=== PATIENT | male | born 1995 | race African-American/Black ===

== ENCOUNTER 2016-08-03 01:20 | Emergency (ER) | payer BC ==
[2016-08-03 01:08] LABS: INFLUENZA A NEG (NEG); INFLUENZA B POS (NEG)
[~2016-08-03 01:20] MED LIST: ADVIL200 M1 PO; ASPIRIN81 M2 PO; NO MEDICATIONS; NYQUIL D COLD295 ML; PREVACID SOLUTA30 M1 PO; ST. JOSEPH ASP325 MG PO; VOLTAREN75 MG PO
[2016-08-03] MEDS ORDERED: TAMIFLU75 M1 PO (01:30)
[2016-08-03] MEDS ORDERED: PROMETHAZI6.25 MG/5 PO (01:30)
[2016-09-01] MEDS ORDERED: NO MEDICATIONS (23:12)
== END 2016-08-03 01:30 | disposition home or self-care (01) ==
LOC: SED 01:20
PROVIDERS: Emergency Medicine
DX: J10.1 Influenza due to other identified influenza virus with other respiratory manifestations (principal); F17.200 Nicotine dependence, unspecified, uncomplicated
CPT/HCPCS: 87651; 87804; 99283

== ENCOUNTER 2016-09-01 23:47 | Emergency (ER) | payer BC ==
[~2016-09-01 23:47] MED LIST changes: +PROMETHAZI6.25 MG/5 PO; +TAMIFLU75 M1 PO
== END 2016-09-02 00:11 | disposition home or self-care (01) ==
LOC: SED 23:47
DX: K08.89 Other specified disorders of teeth and supporting structures (principal); K05.10 Chronic gingivitis, plaque induced; F17.200 Nicotine dependence, unspecified, uncomplicated
CPT/HCPCS: 99283

== ENCOUNTER 2016-09-21 06:44 | Emergency (ER) | payer BC ==
--- NOTE | ~2016-09-21 | CR63 ---
[facility]. [facility] A Service of [facility] & [facility] RADIOLOGY TEXT RESULTS PATIENT: JAMAL CABRERA LOCATION: SED : [birth year] UNIT #: [id number] AGE: [address]: Leandro Stevens MD SEX: M ORDER DR: [id number] [place] [id number] E MR#: [id number] Acc #: [id number] NAME: JAMAL CABRERA : 1995 SEX: M STUDY DATE/TIME: 09/21/2016 6:44 UNIT: SED ROOM: STUDY DESCRIPTION: CR Chest 2 View Attending Physician: Leandro Stevens M.D. Ordering Physician: Leandro Stevens M.D. Primary Care Physician: Primary Care Physician No MEDICAL IMAGING REPORT This report is preliminary unless electronic signature is present. EXAM Two-view chest 09/21/2016 HISTORY Chest pain beginning today. COMPARISON Chest 05/27/2016 FINDINGS 2 views of the chest demonstrate clear lungs. No pleural effusion or pneumothorax. Heart size and mediastinum normal. Pulmonary vasculature normal. IMPRESSION No acute cardiopulmonary findings. Dictated by... Ozzie Vidales M.D. THIS IS AN ELECTRONICALLY VERIFIED REPORT Ozzie Vidales M.D. at 09/21/2016 8:09 AM Tabitha TD: 09/21/2016 07:49 JOB #: [id number] MEDICAL IMAGING REPORT Page 1 of 1
--- NOTE | ~2016-09-21 | EKG ---
PATIENT: JAMAL CABRERA UNIT #: [id number] Ventricular Rate: 66 BPM Atrial Rate: 66 BPM P-R Interval: 148 ms QRS Duration: 114 ms Q-T Interval: 360 ms QTC Calculation(Bezet): 377 ms P [place]: 31 degrees Calculated R [place]: 70 degrees Calculated T [place]: 35 degrees Diagnosis Line: Normal sinus rhythm Diagnosis Line: Incomplete right bundle branch block Diagnosis Line: Otherwise normal ECG Diagnosis Line: When compared with ECG of 27-MAY-2016 06:38, Diagnosis Line: No significant change was found Diagnosis Line: Confirmed by OLIVIER LOZANO MD ([id number]) on 09/24/2016 Diagnosis Line: 9:34:35 AM INTERPRETING MD: MARTA LEUNG
[2016-09-21 06:48] LABS: BASOPHIL# 0.1 X10e3 (0-0.3); BASOPHIL% 0.9 % (0-2.5); EOSINOPHIL# 0.1 X10e3 (0-0.7); EOSINOPHIL% 1.5 % (0.0-7.0); HEMATOCRIT 47.3 % (38.0-50.0); HEMOGLOBIN 16.4 gm/dL (13.0-16.0); LYMPHOCYTE# 2.1 X10e3 (1.0-3.5); LYMPHOCYTE% 36.1 % (17.0-45.0); MEAN CELL VOLUME 88.2 FL (83-96); MEAN CORPUSCULAR HEMOGLOBIN 30.6 PG (28-34); MEAN CORPUSCULAR HGB CONC 34.7 g/dL (30-36); MEAN PLATELET VOLUME 7.3 FL (6.5-11.5); MONOCYTE# 0.4 X10e3 (0-1.0); NEUTROPHIL# 3.2 X10e3 (1.5-7.1); NEUTROPHIL% 54.5 % (40-75); PLATELET COUNT 382 X10e3 (140-420); RED BLOOD COUNT 5.36 X10e (3.90-5.60); RED CELL DISTRIBUTION WIDTH 14.2 % (11.0-15.5); WHITE BLOOD COUNT 5.9 X10e3 (4.0-10.5)
[2016-09-21 06:49] LABS: DIFF IND NO
[2016-09-21 07:05] LABS: POC - CKMB <1.0 ng/mL (0.0-7.9); POC - TROPONIN <0.05 ng/mL (<=0.05)
[2016-09-21 07:06] LABS: CALCIUM SERUM 9.4 mg/dL (8.4-10.2); CREATININE SERUM 0.7 mg/dL (0.6-1.4); GLOM FILT RATE Estimated 157.5 mL/min (>60); POTASSIUM 3.8 mmol/L (3.5-5.1)
== END 2016-09-21 07:33 | disposition home or self-care (01) ==
LOC: SED 06:44
PROVIDERS: Emergency Medicine
DX: R07.9 Chest pain, unspecified (principal); F41.9 Anxiety disorder, unspecified; F17.200 Nicotine dependence, unspecified, uncomplicated
CPT/HCPCS: 36415; 71020; 80048; 82553; 84484; 85025; 93005; 99284

== ENCOUNTER 2016-11-02 23:38 | Emergency (ER) | payer SELFPAY ==
--- NOTE | ~2016-11-02 | EKG ---
PATIENT: JAMAL CABRERA UNIT #: [id number] Ventricular Rate: 66 BPM Atrial Rate: 66 BPM P-R Interval: 148 ms QRS Duration: 116 ms Q-T Interval: 384 ms QTC Calculation(Bezet): 402 ms P [place]: 23 degrees Calculated R [place]: 66 degrees Calculated T [place]: 49 degrees Diagnosis Line: Normal sinus rhythm Diagnosis Line: Incomplete right bundle branch block Diagnosis Line: Borderline ECG Diagnosis Line: No previous ECGs available Diagnosis Line: Confirmed by KATHRYN MATA MD ([id number]) on Diagnosis Line: 11/05/2016 8:31:13 AM INTERPRETING MD: ADOLFO LEUNG
== END 2016-11-03 02:23 | disposition home or self-care (01) ==
LOC: SED 23:38
DX: R07.9 Chest pain, unspecified (principal); F17.210 Nicotine dependence, cigarettes, uncomplicated
CPT/HCPCS: 93005; 99284

== ENCOUNTER 2017-01-04 16:19 | Emergency (ER) | payer SELFPAY ==
[~2017-01-04] VITALS: Ht 167.6 cm; Wt 54.4 kg
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
== END 2017-01-04 19:04 | disposition home or self-care (01) ==
LOC: SED 16:19
DX: S50.02XA Contusion of left elbow, initial encounter (principal); S90.32XA Contusion of left foot, initial encounter; S70.02XA Contusion of left hip, initial encounter; S80.212A Abrasion, left knee, initial encounter; S80.211A Abrasion, right knee, initial encounter; Z23 Encounter for immunization; R03.0 Elevated blood-pressure reading, without diagnosis of hypertension; F17.200 Nicotine dependence, unspecified, uncomplicated; V29.9XXA Motorcycle rider (driver) (passenger) injured in unspecified traffic accident, initial encounter; Y92.410 Unspecified street and highway as the place of occurrence of the external cause
CPT/HCPCS: 29540; 73080; 73502; 73552; 73562; 73630; 90471; 90715; 99283